=== PATIENT | male | born 1975 | race African-American/Black ===

== ENCOUNTER 2016-05-06 18:25 | Emergency (ER) | payer SELFPAY ==
[~2016-05-06] VITALS: Ht 177.8 cm; Wt 74.3 kg
[~2016-05-06 18:25] MED LIST: Z.0.NO CURRENT MEDS
[2016-05-06 18:31] VITALS: BP 138/79; PULSE 57; RESP 15; TEMP 98.3; O2SAT 99
--- NOTE | 2016-05-06 18:52 | PD ---
HPI . STD check Chief Complaint: Complaint Time Seen by Provider: 19:00 Travel History International Travel<30 days: No Contact w/Intl Traveler<30days: No Traveled to known affect area: No History of Present Illness HPI 40-year-old male with no past medical history here requesting STD screen. He tells me has no symptoms and just wants to be checked. He denies any dysuria, penile discharge, rashes etc. PFSH Past Medical History Medical History: Denies Significant Hx Diminished Hearing: No Tetanus Vaccination: < 5 Years Influenza Vaccination: No Past Surgical History Surgical History: No Previous Surgery Social History Alcohol Use: No Tobacco Use: No Substance Use: No Allergies-Medications (Allergen,Severity, Reaction): Coded Allergies: No Known Allergies (Verified , 05/06/16) Reported Meds & Prescriptions Reported Meds & Active Scripts Active No Active Prescriptions or Reported Medications Review of Systems General / Constitutional: No: Fever Eyes: No: Visual changes HENT: No: Headaches Cardiovascular: No: Chest Pain or Discomfort Respiratory: No: Shortness of Breath Gastrointestinal: No: Abdominal Pain Genitourinary: No: Dysuria Musculoskeletal: No: Pain Skin: No Rash Neurologic: No: Weakness Psychiatric: No: Depression Endocrine: No: Polydipsia Hematologic/Lymphatic: No: Easy Bruising Physical Exam Narrative GENERAL: AAO x 3, no acute distress, Well-nourished, well-developed patient. SKIN: Warm and dry. No visible rashes or bruising. HEAD: Normocephalic and atraumatic. EYES: No scleral icterus. No injection or drainage. ENT: No nasal drainage noted. Mucous membranes pink. Airway patent. NECK: Supple, trachea midline. No JVD. CARDIOVASCULAR: Regular rate and rhythm without murmurs, gallops, or rubs. RESPIRATORY: Breath sounds equal bilaterally. No accessory muscle use. No rhonchi or rales. GASTROINTESTINAL: Abdomen soft, non-tender, nondistended. EXTREMITIES: No cyanosis or edema. BACK: Nontender without obvious deformity. No CVA tenderness. PSYCH: AAO x 3, normal affect. Data Data Last Documented VS Vital Signs Date Time Temp Pulse Resp B/P Pulse Ox O2 Delivery O2 Flow Rate FiO2 05/06/16 18:46 18 05/06/16 18:31 98.3 57 138/79 99 MDM Medical Decision Making Medical Screen Exam Complete: Yes Emergency Medical Condition: No Medical Record Reviewed: Yes Differential Diagnosis high risk sexual behavior, less likely urethritis, Narrative Course 40-year-old male with no past medical history here requesting STD screen. He tells me has no symptoms and just wants to be checked. He denies any dysuria, penile discharge, rashes etc. A medical screening exam was performed: At the time of evaluation the presenting medical condition was determined not to be of an emergent nature. The patient was given the option of receiving additional care, but declined. Patient was given options for additional community resources from which to obtain care. The Patient Has Been advised to seek medical attention for their presenting complaint. The patient has been advised to return to the ER at any time if an emergent condition develops. Diagnosis Primary Impression: Encounter for medical screening examination Scripts No Active Prescriptions or Reported Meds Condition: Martina Funes May 06, 2016 18:52
== END 2016-05-06 19:10 | disposition left against medical advice (07) ==
LOC: PHEFT 18:25
DX: Z11.3 Encounter for screening for infections with a predominantly sexual mode of transmission (principal)
CPT/HCPCS: 99281; 99283

== ENCOUNTER 2016-07-19 09:26 | Emergency (ER) | payer SELFPAY ==
[~2016-07-19] VITALS: Ht 177.8 cm; Wt 70.0 kg
[2016-07-19 09:27] VITALS: BP 134/69; PULSE 63; RESP 16; TEMP 98.2; O2SAT 99
[2016-07-19] MEDS ORDERED: NAPROXEN 500 MG TAB PO ONE (10:00)
[2016-07-19] MEDS ORDERED: NAPR500 PO (10:18)
--- NOTE | 2016-07-19 10:18 | PD ---
HPI Chief Complaint: Headache Time Seen by Provider: 09:34 Travel History International Travel<30 days: No Contact w/Intl Traveler<30days: No Traveled to known affect area: No History of Present Illness HPI 40-year-old man presents to the emergency department complaining of groin pain and headache. 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 He states that over the past several weeks she's had intermittent burning with urination, dark colored urine. States she was told once he had blood in his urine. No history of kidney stones that he knows of. More recently in the past day or so he's had pain in his groin that radiates down to his testicles. No urethral discharge. Yesterday also started getting a headache. No vomiting. No fevers or chills. He otherwise has been feeling well. History Past Medical History Medical History: Denies Significant Hx Tetanus Vaccination: < 5 Years Influenza Vaccination: No Past Surgical History Surgical History: No Previous Surgery Social History Alcohol Use: No Tobacco Use: No Allergies-Medications (Allergen,Severity, Reaction): Coded Allergies: No Known Allergies (Verified , 07/19/16) Reported Meds & Prescriptions Reported Meds & Active Scripts Active No Active Prescriptions or Reported Medications Review of Systems Except as stated in HPI: all other systems reviewed are Neg Physical Exam Narrative GENERAL: Well-appearing 40-year-old man, no acute distress. SKIN: Focused skin assessment warm/dry. CARDIOVASCULAR: Warm and well perfused. RESPIRATORY: Normal rate and effort. GASTROINTESTINAL: Abdomen soft, non-tender, nondistended. Hepatic and splenic margins not palpable. MUSCULOSKELETAL: No obvious deformities. : Normal male genitalia. Circumcised. No testicular pain swelling or tenderness. No urethral discharge. No rashes or lesions. Data Data Last Documented VS Vital Signs Date Time Temp Pulse Resp B/P Pulse Ox O2 Delivery O2 Flow Rate FiO2 07/19/16 09:44 17 99 Room Air 07/19/16 09:27 98.2 63 134/69 Orders Urinalysis - C+S If Indicated (07/19/16 09:37) Gc And Chlamydia Pcr (07/19/16 09:37) Naproxen (Naprosyn) (07/19/16 10:00) MDM Medical Decision Making Medical Screen Exam Complete: Yes Emergency Medical Condition: Yes Differential Diagnosis Urethritis, dehydration, renal lithiasis, hematuria, UTI, viral syndrome, other Narrative Course Medical decision making 32-year-old man with flank pain radiating to his groin with dysuria, dark urine , symptoms of dehydration, and some headache. Etiology is unclear. He overall looks very well. We'll check a UA, for blood to suggest kidney stone, evidence of dehydration, evidence of infection, and GC/Chlamydia PCR. Recommend supportive treatment, increase hydration, NSAIDs for headache. Diagnosis Primary Impression: Headache Additional Impression: Groin pain Additional Instructions: Drink plenty of fluids stay well-hydrated. Take Naprosyn as prescribed. Follow-up with her primary doctor for not completely well in the next 1-2 weeks. Return to the emergency department for any new or worsening symptoms. Med/Other Pt SpecificInfo: Prescription(s) given Scripts Naproxen (Naprosyn)500 Mg [id number] Mg PO BID PRN (PAIN SCALE 1 TO 10) #20 TAB Prov:Carlitos Mott MD 07/19/16 Disposition: 01 DISCHARGE HOME Condition: Stable Carlitos Mott MD July 19, 2016 10:18
[2016-07-19 11:17] LABS: BACTERIA, URINE OCC /hpf; BLOOD, URINE NEG (NEG); COMMENT (UR) CULT NOT INDICATED; CULTURE IF INDICATED CULT NOT INDICATED; GLUCOSE,URINE NEG (NEG); KETONE, URINE NEG (NEG); NITRITE,URINE NEG (NEG); URINE COLOR YELLOW (YELLW/STRAW)
[2016-07-19 13:24] LABS: CHLAMYDIA PCR NOT DETECTED (NOT DETECT); NEISSERIA PCR NOT DETECTED (NOT DETECT)
== END 2016-07-19 11:28 | disposition home or self-care (01) ==
LOC: NEPD 09:26
DX: R51 Headache (principal); R10.31 Right lower quadrant pain; R10.32 Left lower quadrant pain; R30.0 Dysuria
CPT/HCPCS: 81001; 87491; 87591; 99283